=== PATIENT | female | born 1955 | race Caucasian/White ===

== ENCOUNTER 2016-12-22 12:47 | Emergency (ER) | payer MEDICAID ==
[2016-12-22 13:11] VITALS: BP 90/64
--- NOTE | 2016-12-22 13:43 | EDM.PDOC ---
ED HPI Skin/Rash - General Chief Complaint: Skin Complaint Stated Complaint: REACTION ON LT SIDE OF FACE Time Seen by Provider: 12/22/16 13:34 Source: Reports: Patient History Limitations: Reports: No limitations - History of Present Illness INITIAL COMMENTS - FREE TEXT/NARRATIVE: 61-year-old female presents to the emergency room with left facial swelling. Started at her left ear and now is progressively increased to the left side of her face involving the left upper lid left lower lid left infraorbital area and into the left cheek Temperature of 101 last night Has a history of psoriasis 2 previous episodes involving the right side of her face one treated with a Z- Cesar and 1 treated with prednisone Past Medical History HEENT History: Reports: Glaucoma Cardiovascular History: Reports: [place] Musculoskeletal History: Reports: Other (see below) Other Musculoskeletal History: spinal stenosis - Past Surgical History Cardiovascular Surgical History: Reports: Coronary artery stent Social & Family History - Tobacco Use Smoking Status *Q: Never Smoker ED ROS GENERAL - Review of Systems Review Of Systems: See Below Constitutional: Reports: fever HEENT: Reports: Other (Patient denies any difficulties with her vision) Respiratory: Reports: no symptoms Cardiovascular: Reports: No symptoms Endocrine: Reports: no symptoms GI/Abdominal: Reports: No symptoms : Reports: no symptoms Musculoskeletal: Reports: no symptoms Skin: Reports: rash, erythema, other (Rash on the left side of her face involves swelling of the left upper lid left lower lid infraorbital area which has some blistering as well as down the left side of her cheek, area is indurated and slightly tender) Neurological: Reports: no symptoms Psychiatric: Reports: No symptoms Hematologic/Lymphatic: Reports: no symptoms Immunologic: Reports: no symptoms ED EXAM, SKIN/RASH Exam: See Below Exam Limited By: No limitations General Appearance: alert, WD/WN, no apparent distress Eye Exam: bilateral eye: EOMI, PERRL Ears: other (Scaling on the left pinna as well as into the external auditory canal TM appears unremarkable) Nose: normal inspection, normal mucosa Throat/Mouth: Normal inspection, Normal lips, Normal teeth, Normal gums, Normal oropharynx, Normal voice Head: atraumatic, normocephalic Neck: normal inspection, supple, non-tender Respiratory/Chest: no respiratory distress Cardiovascular: regular rate, rhythm Skin: Other (Erythematous rash with subcutaneous swelling involving the upper lid left lower lid. No proptosis. EOMs are intact. Some blisters noted on the left cheek induration appreciated) Location, Skin: face Characteristics: maculopapular, vesicular Associated features: warmth, tenderness, induration Lymphatic: no adenopathy Course - Vital Signs Text/Narrative:: Patient presented with a cellulitis of her left face with associated blistering. No evidence of ocular involvement Treated with Augmentin 875 mg twice daily x10 days instructed to read present if no improvement within 24 hours Last Recorded V/S: Last Vital Signs Temp 99.7 F 12/22/16 13:09 Pulse 90 12/22/16 13:09 Resp 15 12/22/16 13:09 BP 90/64 12/22/16 13:09 Pulse Ox 96 12/22/16 13:09 Departure - Departure Time of Disposition: 13:45 Disposition: Home, Self-Care 01 Condition: good Clinical Impression: Cellulitis Forms: ED Department Discharge Additional Instructions: Prescription sent with the patient for Augmentin 875 mg twice daily for 10 days Followup if no improvement within 24 hours
== END 2016-12-22 14:01 | disposition home or self-care (01) ==
LOC: JP.ED 12:47
DX: L03.211 Cellulitis of face (principal); I25.2 Old myocardial infarction; Z95.5 Presence of coronary angioplasty implant and graft
CPT/HCPCS: 99283

== ENCOUNTER 2017-03-26 17:55 | Emergency (ER) | payer MEDICAID ==
[2017-03-26] MEDS ORDERED: Acetaminophen 325 MG Tab PO ONE (18:32)
[2017-03-26] MEDS ORDERED: Acetaminophen 500 MG Tab PO ONE (18:33)
[2017-03-26] MEDS ORDERED: Acetaminophen 500 MG Tab ONE (18:34)
--- NOTE | 2017-03-26 18:35 | EDM.PDOC ---
ED HPI GENERAL MEDICAL PROBLEM - General Chief Complaint: Back Pain or Injury Stated Complaint: WEEPING IN INCISION Time Seen by Provider: 03/26/17 18:30 Source of Information: Reports: Patient, Family History Limitations: Reports: No Limitations - History of Present Illness INITIAL COMMENTS - FREE TEXT/NARRATIVE: pt had surgery with Dr Cerrato on March 07. She had a disc problem in the lower thoracic. She was doing well until the last 2 days when she started to run a fever and have chills. Her pain also increased. 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 low back Pain Score (Numeric/FACES): 9 - Related Data Allergies Allergy/AdvReac Type Severity Reaction Status Date / Time atorvastatin [From Lipitor] Allergy Other Verified 03/26/17 18:16 codeine Allergy Rash Verified 03/26/17 18:16 Gadolinium-Containing Allergy Pain Verified 03/26/17 18:16 Contrast Medi rosuvastatin [From Crestor] Allergy Other Verified 03/26/17 18:16 Home Meds: Home Meds Carvedilol [Coreg] 25 mg PO BID 01/22/17 [History] Citalopram Hydrobromide [Celexa] 20 mg PO DAILY 01/22/17 [History] Cyanocobalamin (Vitamin B-12) [Vitamin B-12] 1,000 mcg SL DAILY 01/22/17 [ History] Gabapentin [Neurontin] 600 mg PO QID 01/22/17 [History] Potassium Bicarb/Potassium Chl [Potassium Chloride, Effervescent] 25 meq PO DAILY 01/22/17 [History] Simvastatin [Zocor] 20 mg PO BEDTIME 01/22/17 [History] acetaZOLAMIDE [Diamox] 250 mg PO DAILY 01/22/17 [History] Past Medical History HEENT History: Reports: Glaucoma Cardiovascular History: Reports: CAD, High Cholesterol, Hypertension, [place] Respiratory History: Reports: None Gastrointestinal History: Reports: None Genitourinary History: Reports: None Musculoskeletal History: Reports: Other (See Below) Other Musculoskeletal History: spinal stenosis Neurological History: Reports: Migraines Endocrine/Metabolic History: Reports: Obesity/BMI 30+ Hematologic History: Reports: None Immunologic History: Reports: None Oncologic (Cancer) History: Reports: None Dermatologic History: Reports: Psoriasis - Past Surgical History Cardiovascular Surgical History: Reports: Coronary Artery Stent GI Surgical History: Reports: None Neurological Surgical History: Reports: Lumbar Spine Other Neurological Surgeries/Procedures: lumbar stenosis surgery, herniated disk surgery 02/2017 Musculoskeletal Surgical History: Reports: Other (See Below) Social & Family History - Tobacco Use Smoking Status *Q: Never Smoker - Caffeine Use Caffeine Use: Reports: Coffee - Recreational Drug Use Recreational Drug Use: Yes Recreational Drug Type: Reports: Marijuana/Hashish Recreational Drug Use Frequency: Not Used In Over 2 Months ED ROS GENERAL - Review of Systems Review Of Systems: See Below Constitutional: Reports: Fever, Chills, Malaise HEENT: Reports: No Symptoms Respiratory: Reports: No Symptoms Cardiovascular: Reports: No Symptoms Endocrine: Reports: No Symptoms GI/Abdominal: Reports: No Symptoms : Reports: No Symptoms Musculoskeletal: Reports: Other (pt had recent back surgery with Dr Cerrato. ) Skin: Reports: No Symptoms ED EXAM,LOWER BACK PAIN/INJURY - Physical Exam Exam: See Below Text/Narrative:: pt arrved with increased pain in the incision . She has spiked a temp to 102. She does not have a cough, no urine symptoms. Exam Limited By: No Limitations General Appearance: Alert, Anxious Ears: Normal TMs Nose: Normal Inspection Throat/Mouth: Normal Inspection Head: Atraumatic Neck: Normal Inspection Respiratory/Chest: No Respiratory Distress Cardiovascular: Regular Rate, Rhythm GI/Abdominal: Soft, Non-Tender (Female) Exam: Deferred Rectal (Female) Exam: Deferred Back Exam: Other (pt had extensive back surgery at [facility] onMay . She was doing well and she has felt tired and today she is spiking fevers to 102. She has wbc of 16,000. She has a crp of 26 The wound does feel hot and there is a small open area that is draining. ) Neurological: Alert Psychiatric: Normal Affect Course - Vital Signs Last Recorded V/S: Last Vital Signs Temp 38.1 C 03/26/17 19:11 Pulse 96 03/26/17 19:11 Resp 16 03/26/17 19:11 BP 93/47 L 03/26/17 19:11 Pulse Ox 96 03/26/17 19:11 - Orders/Labs/Meds Orders: Active Orders 24 hr Category Date Time Status Chest 1V Frontal [CR] Stat Exams 03/26/17 18:28 Taken CULTURE BLOOD [BC] Urgent Lab 03/26/17 18:25 Received CULTURE BLOOD [BC] Urgent Lab 03/26/17 18:35 Received UA W/MICROSCOPIC [URIN] Urgent Lab 03/26/17 18:16 Uncollected Blood Culture x2 Reflex Set [OM.PC] Urgent Oth 03/26/17 18:18 Ordered Labs: Laboratory Tests 03/26/17 03/26/17 03/26/17 Range/Units 18:25 18:25 18:25 WBC 16.3 H (4.5-11.0) K/uL RBC 3.64 (3.30-5.50) M/uL Hgb 10.5 L (12.0-15.0) g/dL Hct 32.6 L (36.0-48.0) % MCV 90 (80-98) fL MCH 29 (27-31) pg MCHC 32 (32-36) % Plt Count 290 (150-400) K/uL Neut % (Auto) 85 H (36-66) % Lymph % (Auto) 7 L (24-44) % [place] % (Auto) 8 H (2-6) % Eos % (Auto) 0 L (2-4) % Baso % (Auto) 0 (0-1) % Sodium 133 L (140-148) mmol/L Potassium 3.6 (3.6-5.2) mmol/L Chloride 99 L (100-108) mmol/L Carbon Dioxide 23 (21-32) mmol/L Anion Gap 14.6 H (5.0-14.0) mmol/L BUN 8 (7-18) mg/dL Creatinine 0.8 (0.6-1.0) mg/dL Est Cr Clr Drug Dosing 62.63 mL/min Estimated GFR (MDRD) > 60 (>60) Glucose 109 H (74-106) mg/dL Calcium 8.5 (8.5-10.1) mg/dL Total Bilirubin 0.5 (0.2-1.0) mg/dL AST 15 (15-37) U/L ALT 12 (12-78) U/L Alkaline Phosphatase 89 (46-116) U/L C-Reactive Protein 26.02 H (0.0-0.3) mg/dL Total Protein 6.7 (6.4-8.2) g/dL Albumin 2.5 L (3.4-5.0) g/dL Globulin 4.2 H (2.3-3.5) g/dL Albumin/Globulin Ratio 0.6 L (1.2-2.2) Meds: Medications Discontinued Medications Generic Name Dose Route Start Last Admin Trade Name Noelle PRN Reason Stop Dose Admin Acetaminophen 1,000 mg 03/26/17 18:32 03/26/17 18:37 Tylenol PO 03/26/17 18:33 Not Given NOW ONE Acetaminophen 1,000 mg 03/26/17 18:33 03/26/17 18:36 Tylenol Extra Strength PO 03/26/17 18:34 1,000 mg ONETIME ONE Administration Acetaminophen Confirm 03/26/17 18:34 03/26/17 18:48 Tylenol Extra Strength Administered 03/26/17 18:35 Not Given Dose 1,000 mg .ROUTE .STK-MED ONE Hydromorphone HCl 0.5 mg 03/26/17 18:58 03/26/17 19:08 Dilaudid IVPUSH 03/26/17 18:59 0.5 mg ONETIME ONE Administration Ondansetron HCl 4 mg 03/26/17 18:58 03/26/17 19:05 Zofran IVPUSH 03/26/17 18:59 4 mg ONETIME ONE Administration - Re-Assessments/Exams Free Text/Narrative Re-Assessment/Exam: 03/26/17 20:19 temp was 102 . This has come down with tylenol. She was given zosyn 3.375 iv. She was given dilaudid .5 iv and zoforan. Blood cultures, wound culture and ure culture was obtained. A chest xray was obtained which did not show a infiltrate. Departure - Departure Time of Disposition: 20:21 Disposition: DC/Tfer to Acute Hospital 02 Condition: fair Clinical Impression: Dehiscence of laminectomy incision, Spinal stenosis - Discharge Information Forms: ED Department Discharge Care Plan Goals: transfr to [facility]-- Dr Cristian ribeiro - My Orders Last 24 Hours: My Active Orders 03/26/17 18:16 UA W/MICROSCOPIC [URIN] Urgent 03/26/17 18:18 Blood Culture x2 Reflex Set [OM.PC] Urgent 03/26/17 18:25 CULTURE BLOOD [BC] Urgent 03/26/17 18:28 Chest 1V Frontal [CR] Stat 03/26/17 18:35 CULTURE BLOOD [BC] Urgent - Assessment/Plan Last 24 Hours: My Active Orders 03/26/17 18:16 UA W/MICROSCOPIC [URIN] Urgent 03/26/17 18:18 Blood Culture x2 Reflex Set [OM.PC] Urgent 03/26/17 18:25 CULTURE BLOOD [BC] Urgent 03/26/17 18:28 Chest 1V Frontal [CR] Stat 03/26/17 18:35 CULTURE BLOOD [BC] Urgent
[2017-03-26] MEDS ORDERED: HYDROmorphone 0.5 MG/0.5 ML Syringe IVPUSH ONE ×2 (18:58→20:24)
[2017-03-26] MEDS ORDERED: Ondansetron 4 MG/2 ML SDV IVPUSH ONE (18:58)
[2017-03-26 20:20] VITALS: BP 93/54
[2017-03-26] MEDS ORDERED: Piperacillin/Tazobactam 3.375 GM in Sodium Chloride 0.9% 50 ML IV SCH (20:30)
--- NOTE | 2017-03-27 11:45 | CR ---
Chest 1V Frontal FINDINGS: The heart and vascular structures are normal in appearance. No infiltrates or effusions ar e demonstrated. The skeletal structures are unremarkable. IMPRESSION: Negative exam.
== END 2017-03-26 20:53 ==
LOC: JP.ED 17:55
DX: T81.31XA Disruption of external operation (surgical) wound, not elsewhere classified, initial encounter (principal); M48.00 Spinal stenosis, site unspecified; I25.10 Atherosclerotic heart disease of native coronary artery without angina pectoris; I10 Essential (primary) hypertension; E66.9 Obesity, unspecified; I25.2 Old myocardial infarction; Z95.5 Presence of coronary angioplasty implant and graft; Z98.890 Other specified postprocedural states; Z79.899 Other long term (current) drug therapy; Z88.5 Allergy status to narcotic agent; Z88.8 Allergy status to other drugs, medicaments and biological substances
CPT/HCPCS: 36415; 71010; 80053; 85025; 86140; 87040; 96365; 96375; 96376; 99284; A9270; J1170; J2405; J2543; J7050